=== PATIENT | male | born 1965 | race Caucasian/White ===

== ENCOUNTER 2019-09-27 17:01 | Observation (INO) | payer OTHER ==
[~2019-09-27] VITALS: Ht 190.5 cm; Wt 146.5 kg
[~2019-09-27 17:01] MED LIST: ACETAMINOPHEN500 MG PO; KEFLEX500 MG PO; LISINOPRIL-HCT1 EACH PO; NORCO 7.5-3251 EACH PO
[2019-09-27] MEDS ORDERED: SODIUM CHLORIDE 0.9% 1000ML 1,000 ML IV STA (17:06)
[2019-09-27 17:38] LABS: BASOPHILS # (AUTO) 0.1 (0.0-0.1); BASOPHILS % 0.7 % (0.0-1.0); EOSINOPHILS # (AUTO) 0.1 (0.0-0.4); EOSINOPHILS % 1.9 % (0.0-6.0); HEMATOCRIT 48.7 % (38.2-49.6); HEMOGLOBIN 16.9 g/dL (14.0-18.0); LYMPHOCYTES # (AUTO) 2.3 (1.0-3.2); LYMPHOCYTES % 30.9 % (18.0-39.1); MEAN CORPUSCULAR HEMOGLOBIN 29.9 pg (28-32); MEAN CORPUSCULAR HGB CONC 34.7 g/dL (31-35); MONOCYTES # (AUTO) 0.4 (0.2-0.8); MONOCYTES % 5.8 % (4.4-11.3); NEUTROPHILS # (AUTO) 4.5 (2.1-6.9); NEUTROPHILS % 60.4 % (38.7-80.0); PLATELET COUNT 241 x10e3/uL (140-360); RED BLOOD COUNT 5.66 x10e6/uL (4.3-5.7); RED CELL DISTRIBUTION WIDTH 11.7 % (11.7-14.4)
[2019-09-27 17:51] LABS: ABG PCO2 36 mmHg (41-51); ABG PH 7.39 (7.31-7.41); ABG PO2 82 mmHg (80-105)
[2019-09-27 17:52] LABS: ABG HCO3 22 mmol/L (23-28)
[2019-09-27 17:56] LABS: ALBUMIN 3.9 g/dL (3.5-5.0); ALBUMIN/GLOBULIN RATIO 1.2 (0.8-2.0); CALCIUM 10.2 mg/dL (8.4-10.2); CREATININE, SERUM 1.51 mg/dL (0.72-1.25)
[2019-09-27 18:04] LABS: CREATINE KINASE MB 1.4 ng/mL (0-5.0)
[2019-09-27] MEDS ORDERED: DEXTROSE 50% SYRINGE 50 ML IV PRN (18:15)
[2019-09-27] MEDS ORDERED: INSULIN REGULAR, HUMAN 100 UNIT/1 ML 3ML VIAL IV NR (18:45)
[2019-09-27] MEDS: SODIUM CHLORIDE 0.9% 1000ML 1,000 ML IV SCH (18:54)
[2019-09-27] MEDS ORDERED: METFORMIN HCL500 M1 PO (20:25)
[2019-09-27 21:33] VITALS: BP 119/70
[2019-09-27 22:29] VITALS: BP 119/70
[2019-09-27] MEDS: INSULIN REGULAR, HUMAN 100 UNIT/1 ML 3ML VIAL SQ SCH (22:30)
[2019-09-27] MEDS ORDERED: INFLUENZA VIRUS VAC SPLIT INJ 0.5 ML SYR IM SCH (22:31)
[2019-09-27 22:35] VITALS: BP 119/70
[2019-09-28] VITALS: BP 129/76
[2019-09-28] MEDS: SODIUM CHLORIDE 0.9% 1000ML 1,000 ML IV SCH (02:03)
[2019-09-28 04:00] VITALS: BP 119/83
[2019-09-28 06:14] LABS: ANION GAP 12.9 mmol/L (8-16); BLOOD UREA NITROGEN 15 mg/dL (7-26); BUN/CREATININE RATIO 14 (6-25); CALCIUM 8.9 mg/dL (8.4-10.2); CARBON DIOXIDE 25 mmol/L (22-29); CHLORIDE 100 mmol/L (98-107); CREATININE, SERUM 1.07 mg/dL (0.72-1.25); EST GLOMERULAR FILTRATION RATE > 60 ML/MIN (60-); GLUCOSE 302 mg/dL (74-118); POTASSIUM 3.9 mmol/L (3.5-5.1); SODIUM 134 mmol/L (136-145)
[2019-09-28] MEDS: INSULIN REGULAR, HUMAN 100 UNIT/1 ML 3ML VIAL SQ SCH ×2 (08:00→11:40)
[2019-09-28 08:16] VITALS: BP 118/71
[2019-09-28 12:11] VITALS: BP 109/72
[2019-09-28] MEDS ORDERED: DEXTROSE 50% SYRINGE 50 ML IV PRN (12:15)
--- NOTE | 2019-09-28 13:50 | NUR ---
WOUND CARE CONSULT FOR 54 YO MALE DIABETIC PATIENT RADHA Persaud ON CONSERVATIVE PUP ON VISCO MATTRESS LABS : WBC-7.47,HGB- 16.9, GLUCOSE - 302 SKIN ASSESSMENT COMPLETE PATIENT PRESENTS WITH BILATERAL DRY FLAKEY FEET WITH CALLUSED HEELS RIGHT HEEL HAS FISSURE OPENING 3CMX.2CMX.1CM WITH RAISED CALLUSED EDGES PATIENT TEACHING DONE PERTAINING TO DAILY FOOT CARE AND MAINTENANCE( PATIENT STATES AND REPEATS INFORMATION SHOWING UNDERSTANDING OF INFORMATION DISCUSSED) RECOMMENDATIONS: NURSING TO CONTINUE TO MAINTAIN CONSERVATIVE PUP NURSING TO CONTINUE TO ASSIST PATIENT OUT OF BED FOR MEALS AND MUCH TOLERATED NURSING TO APPLY DAILY VENELEX OINTMENT TO BILATERAL FEET AND HEELS Addendum: 09/28/19 at 1407 by Chris Hobbs RN Amended: Links added.
[2019-09-28 15:51] VITALS: BP 135/76
--- NOTE | 2019-09-28 16:36 | NUR ---
Nutrition Screen Note RD Recommendation for Physician: -Continue diabetic diet Plan of Care: RD following, monitoring for tolerance and adequacy Nutrition reason for involvement: MST and consult for diabetic diet education Primary Diagnose(s): hyperglycemia, visual changes, and renal insufficiency Ht: 75 in Wt: 323 lb BMI: 40.4 kg/m2 IBW: [address] Assessment: (09/28/19) Chart reviewed. Labs and meds reviewed. Pt is a 54 year old male admitted with hyperglycemia, visual changes, and renal insufficiency. Pt stated he has a good appetite and has been eating all of his meals. Pt reported that he had lost weight in the past 2 weeks but was trying to lose weight. Pt reported he weighed 350 lbs 2 weeks ago. Pt currently has a wt of 323 lbs in chart. No N/V/D/C noted and no chewing/swallowing issues. Current Diet: 1800 ADA Diet Malnutrition Evaluation (09/28/19) The patient does not meet criteria for a specified degree of malnutrition at this time. Will re-evaluate at follow-up as appropriate. Diet Education Needs Assessment: Diet education indicated Learner(s): Pt Barriers: No barriers identified Cultural/Language Modifications: No cultural/language modifications noted Readiness: Pt eager to learn Method: explanation/discussion, handout Topics: diabetic diet (carbohydrate counting) and general healthy diet Understanding/Compliance: Pt verbalized understanding. Nutrition Care Level: low Signed: Jessenia Gee, RD, LD
[2019-09-28] MEDS: INSULIN LISPRO 100 UNIT/1 ML 3ML VIAL SQ SCH ×2 (17:00→20:08)
[2019-09-28] MEDS: METFORMIN HCL 500 MG TAB CR PO SCH (17:03)
[2019-09-28] MEDS: GLIMEPIRIDE 2 MG TAB PO SCH (17:03)
[2019-09-28] MEDS: HYDROCHLOROTHIAZIDE 25 MG TAB PO SCH (17:03)
--- NOTE | 2019-09-28 19:20 | NUR ---
Patient visited in room during nursing rounds. Patient alert and oriented x3. No distress or discomfort noted. Ambulatory in room prn. On IVF (NS at 125ml/hr). Call cooper within reach.
[2019-09-28 20:00] VITALS: BP 125/80
[2019-09-28] MEDS ORDERED: LISINOPRIL 10 MG TAB PO SCH (21:00)
[2019-09-29] VITALS: BP 112/71
[2019-09-29] MEDS: SODIUM CHLORIDE 0.9% 1000ML 1,000 ML IV SCH (00:47)
[2019-09-29 04:00] VITALS: BP 99/63
--- NOTE | 2019-09-29 04:00 | NUR ---
Pt awake. Pt requested to discontinue IVF despite doctor's orders. IV now saline locked. Pt believes he will go home or be discharged today.
[2019-09-29 05:46] LABS: ANION GAP 14.7 mmol/L (8-16); BLOOD UREA NITROGEN 14 mg/dL (7-26); BUN/CREATININE RATIO 14 (6-25); CALCIUM 8.9 mg/dL (8.4-10.2); CARBON DIOXIDE 24 mmol/L (22-29); CHLORIDE 100 mmol/L (98-107); CREATININE, SERUM 1.03 mg/dL (0.72-1.25); EST GLOMERULAR FILTRATION RATE > 60 ML/MIN (60-); GLUCOSE 230 mg/dL (74-118); POTASSIUM 3.7 mmol/L (3.5-5.1); SODIUM 135 mmol/L (136-145)
[2019-09-29 06:54] LABS: BASOPHILS % 0.7 % (0.0-1.0); EOSINOPHILS # (AUTO) 0.2 (0.0-0.4); EOSINOPHILS % 3.2 % (0.0-6.0); HEMATOCRIT 43.7 % (38.2-49.6); HEMOGLOBIN 14.9 g/dL (14.0-18.0); LYMPHOCYTES # (AUTO) 2.1 (1.0-3.2); LYMPHOCYTES % 36.6 % (18.0-39.1); MEAN CORPUSCULAR HEMOGLOBIN 29.6 pg (28-32); MEAN CORPUSCULAR HGB CONC 34.1 g/dL (31-35); MEAN CORPUSCULAR VOLUME 86.9 fL (81-99); MONOCYTES # (AUTO) 0.3 (0.2-0.8); MONOCYTES % 5.8 % (4.4-11.3); NEUTROPHILS # (AUTO) 3.1 (2.1-6.9); NEUTROPHILS % 53.3 % (38.7-80.0); PLATELET COUNT 207 x10e3/uL (140-360); RED BLOOD COUNT 5.03 x10e6/uL (4.3-5.7); RED CELL DISTRIBUTION WIDTH 11.9 % (11.7-14.4)
--- NOTE | 2019-09-29 07:00 | NUR ---
RECEIVED AM REPORT FROM NURSE AND ROUNDS DONE. PT IS ALERT AND OOB, NO S/S OF DISTRESS. CALL LIGHT WITHIN REACH AND INSTRUCTED PT TO CALL NURSE FOR HELP
[2019-09-29] MEDS: INSULIN LISPRO 100 UNIT/1 ML 3ML VIAL SQ SCH ×2 (07:30→12:26)
[2019-09-29 08:08] VITALS: BP 121/73
[2019-09-29] MEDS: GLIMEPIRIDE 2 MG TAB PO SCH (08:19)
[2019-09-29] MEDS: METFORMIN HCL 500 MG TAB CR PO SCH (08:19)
[2019-09-29] MEDS: HYDROCHLOROTHIAZIDE 25 MG TAB PO SCH (08:21)
[2019-09-29] MEDS ORDERED: BALSAM PERU/CASTOR OIL 60 GM OINT...G. TP SCH (09:00)
--- NOTE | 2019-09-29 11:10 | Consultation ---
DATE OF CONSULTATION: 09/29/2019 HISTORY OF PRESENT ILLNESS: This is a 54-year-old male with past medical history of type 2 diabetes and hypertension. He presented to the emergency room complaining of weakness with movement, nausea and was admitted for hyperglycemia and renal insufficiency. The Podiatry Service is being consulted for a left foot wound. Per the patient, he relates that the left heel fissure has been present for approximately 2 to 3 weeks. It was painful, but does appear to be improving. He has no prior history of wound infections or amputations. He relates that he for the past 3 to 4 months was not taking his diabetic and hypertensive medications appropriately. He currently denies nausea, vomiting, fever, chills, chest pain, or shortness of breath. PAST MEDICAL HISTORY: Type 2 diabetes, peripheral neuropathy, and hypertension. MEDICATIONS: Per the chart. ALLERGIES: TO NAPROXEN. REVIEW OF SYSTEMS: The patient currently denies nausea, vomiting, fever, chills, chest pain, or shortness of breath. PHYSICAL EXAMINATION: GENERAL: Alert and oriented x3, in no apparent distress. VITAL SIGNS: Today, temperature is 98.2, heart rate 93, respiratory rate 18, blood pressure 99/63, and pulse ox is 96% on room air. PROBLEM FOCUSED LOWER EXTREMITY PHYSICAL EXAM: VASCULAR: Dorsalis pedis and posterior tibial pulses are faintly palpable at 1/4. Capillary refill time is approximately 2 to 3 seconds to all digits. Negative erythema, edema, or warmth is present. NEUROLOGICAL: Sensation is diminished to light touch bilateral. MUSCULOSKELETAL: Mild pain on palpation to the left heel fissure. DERMATOLOGICAL: Superficial left heel fissure is present at the posterior aspect of the left heel. Negative erythema, edema, or warmth is present. No local acute signs of infection. LABORATORY DATA: Sodium 135, potassium 3.7, chloride 100, CO2 24, BUN 14, creatinine 1.03, and glucose 230. Hemoglobin A1c is 14.5. White blood cell count 5.71, hemoglobin 14.9, hematocrit 43.7, and platelet count 207. ASSESSMENT: 1. Left foot heel ulceration fissure. 2. Type 2 diabetes, uncontrolled. Hemoglobin A1c of 14.5. PLAN: The patient was seen and evaluated. Discussed condition and treatment options with the patient in detail. At this time, the patient has a superficial heel fissure with no local acute signs of infection. Do not recommend any imaging or surgical intervention at this time. Agree with Venelex castor oil treatment at this point. Add moisture to the dry skin. Discussed with the patient diabetic complications with hemoglobin A1c of 14.5, including peripheral neuropathy as well as peripheral vascular disease. The patient expresses understanding. The Podiatry Service will continue to monitor as an inpatient. CANDIDO Farnsworth/CARRILLO /[id number]
[2019-09-29 12:09] VITALS: BP 121/73
[2019-09-29] MEDS ORDERED: INFLUENZA VIRUS VAC SPLIT INJ 0.5 ML SYR IM SCH (13:00)
[2019-09-29 14:20] VITALS: BP 131/73
== END 2019-09-29 14:05 | disposition home or self-care (01) ==
LOC: ER 17:22 → ERHOLD 18:06 → MED/SURG2 20:58
DX: E11.65 Type 2 diabetes mellitus with hyperglycemia (principal); N28.9 Disorder of kidney and ureter, unspecified; E11.42 Type 2 diabetes mellitus with diabetic polyneuropathy; Z88.6 Allergy status to analgesic agent; I10 Essential (primary) hypertension; E78.5 Hyperlipidemia, unspecified; E66.01 Morbid (severe) obesity due to excess calories; Z68.41 Body mass index [BMI] 40.0-44.9, adult; L97.428 Non-pressure chronic ulcer of left heel and midfoot with other specified severity; E86.0 Dehydration; Z79.84 Long term (current) use of oral hypoglycemic drugs
CPT/HCPCS: 36415 ×3; 36600; 80048 ×2; 80053; 82550; 82553; 82805; 82948 ×3; 83036; 84484; 85025 ×2; 93005; 99284; G0378 ×3; J1817; J7030 ×3

== ENCOUNTER 2020-12-05 09:42 | Emergency (ER) | payer BC, OTHER ==
[~2020-12-05] VITALS: Ht 190.5 cm; Wt 145.1 kg
[~2020-12-05 09:42] MED LIST changes: +METFORMIN HCL500 M1 PO
[2020-12-05] MEDS ORDERED: METFORMIN HCL850 MG PO (10:13)
[2020-12-05] MEDS ORDERED: ATORVASTATIN CA20 MG PO (10:13)
[2020-12-05 11:54] VITALS: BP 140/79
== END 2020-12-05 11:56 | disposition home or self-care (01) ==
LOC: ER 10:58
DX: U07.1 COVID-19 (principal); R05 Cough; R06.02 Shortness of breath; R53.83 Other fatigue; I10 Essential (primary) hypertension; E11.9 Type 2 diabetes mellitus without complications; E78.5 Hyperlipidemia, unspecified; Z85.828 Personal history of other malignant neoplasm of skin
CPT/HCPCS: 87400; 99282; U0002